=== PATIENT | male | born 1965 | race Caucasian/White ===

== ENCOUNTER 2022-05-29 14:49 | Emergency (ER) | payer BC, OTHER | END 2022-05-29 16:41 | disposition home or self-care (01) | LOC: ERS 14:49 | DX: M77.11 Lateral epicondylitis, right elbow (principal); E11.9 Type 2 diabetes mellitus without complications; I10 Essential (primary) hypertension; F17.220 Nicotine dependence, chewing tobacco, uncomplicated; Z79.899 Other long term (current) drug therapy; Z79.84 Long term (current) use of oral hypoglycemic drugs ==

== ENCOUNTER 2023-04-03 15:31 | Emergency (ER) | payer BC ==
[2023-04-03] MEDS ORDERED: Acetaminophen 500 MG TAB ONE (17:09)
[2023-04-03 17:23] LABS: SARS-CoV-2 NAA Rapid Test DETECTED (NotDetected)
== END 2023-04-03 17:57 | disposition home or self-care (01) ==
LOC: ERS 15:31
DX: U07.1 COVID-19 (principal); E11.9 Type 2 diabetes mellitus without complications; I10 Essential (primary) hypertension; F17.220 Nicotine dependence, chewing tobacco, uncomplicated; Z79.84 Long term (current) use of oral hypoglycemic drugs
CPT/HCPCS: 71045

== ENCOUNTER 2024-03-05 09:47 | Emergency (ER) | payer BC, OTHER | END 2024-03-05 12:26 | disposition home or self-care (01) | LOC: ERS 09:47 | DX: M25.561 Pain in right knee (principal); E11.9 Type 2 diabetes mellitus without complications; I10 Essential (primary) hypertension; F17.220 Nicotine dependence, chewing tobacco, uncomplicated ==

== ENCOUNTER 2024-06-02 16:12 | Emergency (ER) | payer OTHER ==
[2024-06-02] MEDS ORDERED: Fluorescein Opthalmic Strip ONE (18:27)
[2024-06-02] MEDS ORDERED: Proparacaine 0.5% Opth 15 ML BOT ONE (18:27)
== END 2024-06-02 19:43 | disposition home or self-care (01) ==
LOC: ERS 16:12
DX: S05.02XA Injury of conjunctiva and corneal abrasion without foreign body, left eye, initial encounter (principal); E11.9 Type 2 diabetes mellitus without complications; I10 Essential (primary) hypertension; F17.220 Nicotine dependence, chewing tobacco, uncomplicated; X58.XXXA Exposure to other specified factors, initial encounter
CPT/HCPCS: 99283

== ENCOUNTER 2025-03-10 17:52 | Inpatient (IN) | payer OTHER ==
[2025-03-10] MEDS ORDERED: Aspirin Chewable 81 MG TAB ONE (18:35)
[2025-03-10] MEDS ORDERED: Nitroglycerin 0.4 MG TAB (25 Tab Bottle) ONE (18:37)
[2025-03-10 18:43] LABS: #Basophils 0.03 10x3/uL (0.0-0.2); #Eosinophils 0.17 10x3/uL (0.0-0.7); #Monocytes 0.66 10x3/uL (0.11-0.59); #Neutrophils 4.23 10x3/uL (1.40-6.50); %Basophils 0.4 % (0.0-1.0); %Eosinophils 2.2 % (0.0-10.0); %Lymphocytes 32.4 % (21.0-51.0); %Monocytes 8.7 % (0.0-10.0); %Neutrophils 56.0 % (42.0-75.0); Hematocrit 43.0 % (42.0-52.0); Hemoglobin 14.7 g/dL (14.0-18.0); Mean Corpuscular Hemoglobin 31.7 pg (27.0-31.0); Mean Corpuscular Volume 92.7 fL (78.0-98.0); Platelet Count 243 10x3/uL (130-400); Red Blood Cell (RBC) Count 4.64 mill/uL (4.70-6.10); White Blood Cell (WBC) Count 7.56 10x3/uL (4.8-10.8)
[2025-03-10 18:54] LABS: ALT (SGPT) 34 U/L (Less than 45); AST (SGOT) 36 U/L (11-34); Albumin 3.8 g/dL (3.1-4.5); Alkaline Phosphatase 79 U/L (40-110); Anion Gap 11 mmol/L (10-20); BUN (Urea Nitrogen) 19 mg/dL (8.4-25.7); Bilirubin, Total 1.7 mg/dL (0.3-1.2); Calc. Creatinine Clearance 0 mL/min (70-130); Calcium 9.0 mg/dL (7.8-10.44); Carbon Dioxide 25 mmol/L (23-31); Chloride 105 mmol/L (98-107); Globulin 3.5 g/dL (2.4-3.5); Glucose 115 mg/dL (80-115); Potassium 3.9 mmol/L (3.5-5.1); Sodium 137 mmol/L (136-145)
[2025-03-10 18:57] LABS: INR-International Normal Ratio 1.1; PTT 30.6 sec (22.9-36.1); Prothrombin Time 14.4 sec (12.0-14.7)
[2025-03-10] MEDS ORDERED: Enoxaparin 100 MG (1 mL) SYRINGE ONE (19:56)
[2025-03-10] MEDS ORDERED: Glucagon 1 MG/ML KIT IM PRN (20:14)
[2025-03-10] MEDS ORDERED: Dextrose 50% Abboject 50 ML SYRINGE SLOW IVP PRN (20:14)
[2025-03-10] MEDS ORDERED: Nitroglycerin 0.4 MG TAB (25 Tab Bottle) SL PRN (20:49)
[2025-03-10 22:10] VITALS: BMI 43.2
[2025-03-10] MEDS: Gabapentin 300 MG CAP PO SCH (22:43)
[2025-03-10] MEDS: metFORMIN 500 MG TAB PO SCH (22:44)
[2025-03-11 06:20] LABS: #Basophils 0.03 10x3/uL (0.0-0.2); #Eosinophils 0.17 10x3/uL (0.0-0.7); #Monocytes 0.66 10x3/uL (0.11-0.59); #Neutrophils 3.84 10x3/uL (1.40-6.50); %Basophils 0.5 % (0.0-1.0); %Eosinophils 2.6 % (0.0-10.0); %Lymphocytes 29.2 % (21.0-51.0); %Monocytes 9.9 % (0.0-10.0); %Neutrophils 57.6 % (42.0-75.0); Hematocrit 42.5 % (42.0-52.0); Hemoglobin 15.0 g/dL (14.0-18.0); Mean Corpuscular Hemoglobin 32.6 pg (27.0-31.0); Mean Corpuscular Volume 92.4 fL (78.0-98.0); Platelet Count 234 10x3/uL (130-400); Red Blood Cell (RBC) Count 4.60 mill/uL (4.70-6.10); White Blood Cell (WBC) Count 6.65 10x3/uL (4.8-10.8)
[2025-03-11 06:36] LABS: ALT (SGPT) 31 U/L (Less than 45); AST (SGOT) 31 U/L (11-34); Albumin 3.7 g/dL (3.1-4.5); Alkaline Phosphatase 72 U/L (40-110); Anion Gap 16 mmol/L (10-20); BUN (Urea Nitrogen) 18 mg/dL (8.4-25.7); Bilirubin, Total 1.6 mg/dL (0.3-1.2); Calc. Creatinine Clearance 138 mL/min (70-130); Calcium 9.1 mg/dL (7.8-10.44); Carbon Dioxide 23 mmol/L (23-31); Cardiac Risk 3.5 (Less than 4.5); Chloride 104 mmol/L (98-107); Cholesterol 114 mg/dl (< 200 Desired); Globulin 3.2 g/dL (2.4-3.5); Glucose 153 mg/dL (80-115); HDL Cholesterol 33 mg/dL (>60 Neg Risk); LDL Cholesterol, Calculated 57 mg/dL; Potassium 3.9 mmol/L (3.5-5.1); Sodium 139 mmol/L (136-145); Triglycerides 122 mg/dL (Less than 150)
[2025-03-11] MEDS: Aspirin Chewable 81 MG TAB PO SCH (08:20)
[2025-03-11] MEDS: Pantoprazole 40 MG DR.TAB PO SCH (08:21)
[2025-03-11] MEDS ORDERED: Enoxaparin 80 MG (0.8 mL) SYRINGE SC SCH (09:00)
[2025-03-11] MEDS: Lisinopril 20 MG TAB PO SCH (10:49)
[2025-03-11] MEDS: Rosuvastatin 10 MG TAB PO SCH (10:50)
[2025-03-11] MEDS ORDERED: Communication Order-Pharmacy FS PRN (13:45)
[2025-03-12 06:49] LABS: #Basophils 0.04 10x3/uL (0.0-0.2); #Eosinophils 0.18 10x3/uL (0.0-0.7); #Monocytes 0.73 10x3/uL (0.11-0.59); #Neutrophils 4.76 10x3/uL (1.40-6.50); %Basophils 0.5 % (0.0-1.0); %Eosinophils 2.2 % (0.0-10.0); %Lymphocytes 30.8 % (21.0-51.0); %Monocytes 8.8 % (0.0-10.0); %Neutrophils 57.5 % (42.0-75.0); Hematocrit 45.4 % (42.0-52.0); Hemoglobin 15.4 g/dL (14.0-18.0); Mean Corpuscular Hemoglobin 31.6 pg (27.0-31.0); Mean Corpuscular Volume 93.2 fL (78.0-98.0); Platelet Count 289 10x3/uL (130-400); Red Blood Cell (RBC) Count 4.87 mill/uL (4.70-6.10); White Blood Cell (WBC) Count 8.28 10x3/uL (4.8-10.8)
[2025-03-12 07:12] LABS: ALT (SGPT) 34 U/L (Less than 45); AST (SGOT) 30 U/L (11-34); Albumin 4.0 g/dL (3.1-4.5); Alkaline Phosphatase 79 U/L (40-110); Anion Gap 15 mmol/L (10-20); BUN (Urea Nitrogen) 21 mg/dL (8.4-25.7); Bilirubin, Total 1.6 mg/dL (0.3-1.2); Calc. Creatinine Clearance 111 mL/min (70-130); Calcium 9.5 mg/dL (7.8-10.44); Carbon Dioxide 23 mmol/L (23-31); Chloride 105 mmol/L (98-107); Globulin 3.6 g/dL (2.4-3.5); Glucose 140 mg/dL (80-115); Potassium 4.1 mmol/L (3.5-5.1); Sodium 139 mmol/L (136-145)
[2025-03-12] MEDS ORDERED: Heparin 10,000 UNITS/ 10 ML VIAL ONE (07:12)
[2025-03-12] MEDS ORDERED: Lidocaine 1% (PF) 30 ML VIAL ONE (07:12)
[2025-03-12] MEDS ORDERED: Iopamidol 370 76% 100 ML VIAL ONE (11:35)
[2025-03-12] MEDS: Rosuvastatin 10 MG TAB PO SCH (20:18)
[2025-03-12] MEDS ORDERED: Glucagon 1 MG/ML KIT IM PRN (21:49)
[2025-03-13 04:52] LABS: #Basophils 0.05 10x3/uL (0.0-0.2); #Eosinophils 0.20 10x3/uL (0.0-0.7); #Monocytes 0.84 10x3/uL (0.11-0.59); #Neutrophils 5.50 10x3/uL (1.40-6.50); %Basophils 0.5 % (0.0-1.0); %Eosinophils 2.2 % (0.0-10.0); %Lymphocytes 27.9 % (21.0-51.0); %Monocytes 9.1 % (0.0-10.0); %Neutrophils 59.9 % (42.0-75.0); Hematocrit 45.0 % (42.0-52.0); Hemoglobin 15.3 g/dL (14.0-18.0); Mean Corpuscular Hemoglobin 31.7 pg (27.0-31.0); Mean Corpuscular Volume 93.2 fL (78.0-98.0); Platelet Count 262 10x3/uL (130-400); Red Blood Cell (RBC) Count 4.83 mill/uL (4.70-6.10); White Blood Cell (WBC) Count 9.20 10x3/uL (4.8-10.8)
[2025-03-13 05:06] LABS: ALT (SGPT) 36 U/L (Less than 45); AST (SGOT) 34 U/L (11-34); Albumin 3.8 g/dL (3.1-4.5); Alkaline Phosphatase 76 U/L (40-110); Anion Gap 12 mmol/L (10-20); BUN (Urea Nitrogen) 23 mg/dL (8.4-25.7); Bilirubin, Total 1.7 mg/dL (0.3-1.2); Calc. Creatinine Clearance 126 mL/min (70-130); Calcium 9.5 mg/dL (7.8-10.44); Carbon Dioxide 25 mmol/L (23-31); Chloride 105 mmol/L (98-107); Globulin 3.5 g/dL (2.4-3.5); Glucose 148 mg/dL (80-115); Potassium 4.0 mmol/L (3.5-5.1); Sodium 138 mmol/L (136-145)
[2025-03-13] MEDS ORDERED: Lidocaine 1% PF 5 ML VIAL ONE (10:15)
[2025-03-13] MEDS ORDERED: PROPOFOL 200 MG/20 ML VIAL ONE (10:18)
[2025-03-13 11:35] VITALS: TEMP 97.8
[2025-03-13 11:45] VITALS: BP 137/77
== END 2025-03-13 15:21 | disposition home or self-care (01) | DRG 287 ==
LOC: ERS 17:52 → OBS 19:58 → OBSVTOIN 03-12 13:04
PROVIDERS: ADMIT Student in an Organized Health Care Education/Training Program; ATTEND Student in an Organized Health Care Education/Training Program
PROC: 4A023N8 Measurement of Cardiac Sampling and Pressure, Bilateral, Percutaneous Approach (ICD-10-PCS; principal; 2025-03-12)
PROC: B2111ZZ Fluoroscopy of Multiple Coronary Arteries using Low Osmolar Contrast (ICD-10-PCS; 2025-03-12)
PROC: B2161ZZ Fluoroscopy of Right and Left Heart using Low Osmolar Contrast (ICD-10-PCS; 2025-03-12)
PROC: 0DB58ZX Excision of Esophagus, Via Natural or Artificial Opening Endoscopic, Diagnostic (ICD-10-PCS; 2025-03-13)
PROC: 0DB68ZX Excision of Stomach, Via Natural or Artificial Opening Endoscopic, Diagnostic (ICD-10-PCS; 2025-03-13)
DX: I20.0 Unstable angina (principal); Z68.41 Body mass index [BMI] 40.0-44.9, adult; Z88.0 Allergy status to penicillin; I10 Essential (primary) hypertension; E78.5 Hyperlipidemia, unspecified; Z98.890 Other specified postprocedural states; E11.40 Type 2 diabetes mellitus with diabetic neuropathy, unspecified; F17.200 Nicotine dependence, unspecified, uncomplicated; E66.9 Obesity, unspecified; Z79.82 Long term (current) use of aspirin; Z79.899 Other long term (current) drug therapy; Z79.84 Long term (current) use of oral hypoglycemic drugs
CPT/HCPCS: 36415; 36416; 71045; 76700; 80053; 80061; 83036; 83880; 84484; 85025; 85610; 85730; 88305; 88342; 93005; 93458; 96372; 99152; 99153; C1769; C1887; C1894; G0378; J1644; J1650; J1815; J2003; J2250; J2704; J7030; Q0162; Q9967